=== PATIENT | male | born 1955 | race Hispanic/Latino ===

== ENCOUNTER 2018-09-04 07:39 | Day surgery (SDC) | payer OTHER ==
[2018-09-04] MEDS ORDERED: Bupivacaine 0.5% 50 ML IJ ONE ×2 (09:12→11:22)
[2018-09-04] MEDS ORDERED: Propofol 10 mg/ml Inj (20 ML) ONE (09:55)
[2018-09-04] MEDS ORDERED: Midazolam 2 MG/2 ML VIAL ONE (09:55)
[2018-09-04] MEDS ORDERED: Lidocaine PF 2% (5 ml) Inj (For Cardiac Arrhy) ONE (09:57)
[2018-09-04] MEDS ORDERED: Vancomycin 1 g Inj ONE (10:06)
[2018-09-04] MEDS ORDERED: Ciprofloxacin 400mg/200ml D5W 400 MG/200 ML BAG IVPB ONE (10:11)
[2018-09-04] MEDS ORDERED: Ciprofloxacin 400mg/200ml D5W IVPB ONE (10:15)
[2018-09-04] MEDS ORDERED: HYDROmorphone 0.5 mg/0.5 ml ISec IVP PRN (11:51)
--- NOTE | 2018-09-04 11:59 | PCM.SURG1 ---
Surgeon's Initial Post Op Note - Surgeon's Notes Surgeon: [employer] Technician: Chicho PGY4, Coleman PGY3 Type of Anesthesia: General LMA, Local Pre-Operative Diagnosis: Recurrent R inguinal hernia Operative Findings: Indirect R inguinal hernia Post-Operative Diagnosis: same Operation Performed: Open R inguinal hernia repair w. UHSM6 mesh, size medium Specimen/Specimens Removed: scar Estimated Blood Loss: EBL {In ML}: 25 Blood Products Given: N/A Drains Used: No Drains Post-Op Condition: Good Date of Surgery/Procedure: 09/04/18 Time of Surgery/Procedure: 11:58
[2018-09-04] MEDS ORDERED: Lactated Ringer's 1,000 ML IV SCH (12:00)
[2018-09-04 13:15] VITALS: RESP 18; TEMP 97.8; O2SAT 97
[2018-09-04 13:59] VITALS: BP 136/85; PULSE 75
--- NOTE | 2018-09-05 08:28 | OP ---
PROCEDURE DATE: 09/04/2018 PREOPERATIVE DIAGNOSIS: Recurrent right inguinal hernia. POSTOPERATIVE DIAGNOSIS: Right recurrent inguinal hernia. PROCEDURE: Open right inguinal hernia repair with mesh. SURGEON: Rob Ramirez MD CAPTURE MANAGER: Antwan Valentino, PGY-4 and Sada Cee DO, PGY-3. ANESTHESIOLOGIST: Dr. Moore. ANESTHESIA: General, LMA and local. BLOOD LOSS: 15 mL. SPECIMEN: Scar. INDICATIONS: This is a 63-year-old gentleman presents with symptomatic recurrent right inguinal hernia repair. Open repair with mesh was elected. Informed consent was obtained after discussing risk and benefits. DESCRIPTION: The patient was taken to the operating room and placed on the operating table in the supine position. General anesthesia was induced. All appropriate monitoring devices were in place. The SCDs were applied to the patient's lower extremities, and preoperative antibiotics were given. The right groin was then prepped and draped in the usual sterile manner, and a time-out was conducted verifying correct patient, procedure, site, position, laterality, and implants. A 0.25% Marcaine was used to anesthetize the overlying skin, and incision was made to excise the old scar from his initial operation. This incision was deepened through Chirag's and Camper's fascia with electrocautery until the aponeurosis of the external oblique was encountered. This was cleaned, and the external ring was exposed. Next, the external oblique was divided into mid portion, mid direction of the fibers. The flaps of the external oblique were developed superiorly and inferiorly. Next, core was identified and was gently dissected free of the pubic tubercle. This was then encircled via [place] drain. Attention was then directed to the anterior medial aspect of the cord where the hernia sac was identified. The sac was carefully dissected free of the cord down to the level of the internal ring. Now, the vas and testicular vessels were identified and protected during this process. Next, the hernia sac was then returned to the abdomen in a UHSM6 sized medium mesh was taken. Now, the mesh was trimmed to the appropriate size within an oval medial portion in a longitudinal lateral opening. Now, the mesh was properly in place. The 0 Vicryl sutures were taken, and now, the mesh was sutured. The inguinal ligament inferiorly in the conjoined tendon superiorly with the interrupted sutures. Care was taken to mesh was placed in a relaxed fashion to avoid excessive tension that no neurovascular structures were caught in the repair. the length of the passage of the surgeon's fifth finger tip. The [place] drain was then removed, and the external oblique aponeurosis was closed via running 3-0 Vicryl. The Chirag's fascia was then closed with interrupted 3-0 Vicryl, and the skin was closed with a running 4-0 Monocryl suture. The incision then had Dermabond applied to it, and the testes were gently pulled down into the normal anatomic position of the scrotum. The patient tolerated the procedure well and was taken to PACU in stable condition. Antwan Valentino DO Rob Ramirez MD
== END 2018-09-04 14:45 | disposition home or self-care (01) ==
LOC: SDS 07:39
PROVIDERS: ATTEND General Practice
DX: K40.91 Unilateral inguinal hernia, without obstruction or gangrene, recurrent (principal); J44.9 Chronic obstructive pulmonary disease, unspecified
CPT/HCPCS: 49505; 88304; C1781; J0744; J1170; J1885; J2250; J2405; J2704; J3010; J7120 ×2